=== PATIENT | male | born 1985 | race Two or more races ===

== ENCOUNTER 2017-03-10 13:17 | Emergency (ER) | payer OTHER ==
[2017-03-10 13:35] VITALS: BP 142/91; PULSE 86; TEMP 98.4; BMI 30.7
[2017-03-10] MEDS ORDERED: IBUPROFEN 400 MG TABLET (FP) PO ONE ×2 (13:43→14:03)
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
== END 2017-03-10 16:38 | disposition home or self-care (01) ==
LOC: FER 13:17
DX: S02.31XA Fracture of orbital floor, right side, initial encounter for closed fracture (principal); S01.81XA Laceration without foreign body of other part of head, initial encounter; F07.81 Postconcussional syndrome; S00.83XA Contusion of other part of head, initial encounter; V03.10XA Pedestrian on foot injured in collision with car, pick-up truck or van in traffic accident, initial encounter; Y93.89 Activity, other specified; Y92.410 Unspecified street and highway as the place of occurrence of the external cause; J45.909 Unspecified asthma, uncomplicated; F17.210 Nicotine dependence, cigarettes, uncomplicated
CPT/HCPCS: 70450-TC; 70486-TC; 99282-25

== ENCOUNTER 2019-08-04 16:21 | Emergency (ER) | payer OTHER ==
[2019-08-04 16:32] VITALS: BP 134/90; PULSE 98; TEMP 98.3; BMI 29.9
[2019-08-04] MEDS ORDERED: IBUPROFEN 600 MG TABLET (FP) PO ONE (17:02)
--- NOTE | 2019-08-04 17:30 | PDOC ---
History of Present Illness - General Chief Complaint: Sore Throat Stated Complaint: SORE THROAT/COLD Time Seen by Provider: 08/04/19 16:46 History Source: Patient Exam Limitations: No Limitations - History of Present Illness Initial Comments: 08/04/19 17:30 33-year-old male presents to ED with complaints of for evaluation of sore throat difficulty swallowing and fever since yesterday. Patient states took no medication. Is this a multiple visit Asthma Patient?: No Timing/Duration: other Severity: mild Associated Symptoms: reports: other (sore throat) Past History - Travel Traveled outside of the country in the last 30 days: No Close contact w/someone who was outside of country & ill: No - Past Medical History Allergies/Adverse Reactions: Allergies Allergy/AdvReac Type Severity Reaction Status Date / Time No Known Allergies Allergy Verified 08/04/19 16:32 Home Medications: Ambulatory Orders Cephalexin [Keflex] 500 mg PO BID #14 capsule 03/10/17 Ibuprofen 800 mg PO QID #30 tablet 03/10/17 Oxymetazoline HCl [Afrin] 1 spray NS QID #1 spray 03/10/17 Amoxicillin - [Amoxicillin 500mg Capsule -] 500 mg PO BID #14 capsule 08/04/19 Asthma: Yes COPD: No - Immunization History Immunization Up to Date: Yes - Psycho Social/Smoking Cessation Hx Smoking Status: No Smoking History: Never smoked Have you smoked in the past 12 months: Yes Number of Cigarettes Smoked Daily: 10 'Breaking Loose' booklet given: 03/10/17 Hx Alcohol Use: Yes (SOCIAL) Drug/Substance Use Hx: No Substance Use Type: Alcohol Patient Lives Alone: No Lives with/in: spouse/SO Review of Systems - Review of Systems Able to Perform ROS?: Yes Constitutional: No: Symptoms Reported HEENTM: Yes: Throat Pain, Throat Swelling Respiratory: No: Symptoms reported Cardiac (ROS): No: Symptoms Reported ABD/GI: No: Symptoms Reported : No: Symptoms Reported Musculoskeletal: No: Symptoms Reported Integumentary: No: Symptoms Reported Neurological: No: Symptoms reported *Physical Exam - Vital Signs Last Vital Signs Temp Pulse Resp BP Pulse Ox 98.3 F 98 H 18 134/90 100 08/04/19 16:29 08/04/19 16:29 08/04/19 16:29 08/04/19 16:29 08/04/19 16:29 - Physical Exam General Appearance: Yes: Nourished, Appropriately Dressed. No: Apparent Distress HEENT: positive: Normal Voice, TMs Normal, Pharyngeal Erythema, Tonsillar Exudate (3+ tonsils bilaterally). negative: Pale Conjunctivae Respiratory/Chest: positive: Lungs Clear, Normal Breath Sounds. negative: Respiratory Distress, Accessory Muscle Use Cardiovascular: positive: Regular Rhythm, Regular Rate. negative: Murmur Gastrointestinal/Abdominal: positive: Soft. negative: Tenderness Integumentary: positive: Normal Color, Warm, Moist Neurologic: positive: Motor Strength 5/5 (Ambulatory) ED Treatment Course - Medications Given in the ED: ED Medications Discontinued Medications Generic Name Dose Route Start Last Admin Trade Name Freq PRN Reason Stop Dose Admin Ibuprofen 600 mg 08/04/19 17:02 08/04/19 17:04 Motrin - PO 08/04/19 17:03 600 mg ONCE ONE Administration Medical Decision Making - Medical Decision Making 08/04/19 17:37 Chief complaint: Sore throat difficulty swallowing for 2 days no meds taken Exam: Patient with 3+ exudative tonsils bilaterally. Plan: Motrin and rapid strep sent 08/04/19 17:37 Laboratory Tests 08/04/19 17:12 Group A Strep Rapid Negative Patient be treated with amoxicillin for tonsillitis Discharge - Discharge Information Problems reviewed: Yes Clinical Impression/Diagnosis: Tonsillitis Condition: Good Disposition: HOME - Follow up/Referral - Patient Discharge Instructions Patient Printed Discharge Instructions: DI for Pharyngitis/Tonsillopharyngitis -- Adult Additional Instructions: I recommend drinking plenty of fluids ,gargle with warm salt water , and eat soft nonabrasive foods. take Motrin 600 mg every 8 hours and take antibiotics until completed. - Post Discharge Activity
== END 2019-08-04 17:45 | disposition home or self-care (01) ==
LOC: JERFT 16:21
DX: J03.90 Acute tonsillitis, unspecified (principal)
CPT/HCPCS: 87070; 87880; 99281-25

== ENCOUNTER 2021-08-01 13:09 | Emergency (ER) | payer OTHER ==
[2021-08-01 13:30] VITALS: BP 127/82; PULSE 104; TEMP 97.8; BMI 29.2
[2021-08-01] MEDS ORDERED: CEFAZOLIN 1 GM in DEXTROSE 5%-WATER - 50 ML IVPB ONE (13:56)
[2021-08-01] MEDS ORDERED: ceFAZolin SODIUM 1 GM VIAL ONE (14:08)
[2021-08-01 14:34] LABS: BASO % 0.4 % (0-2.0); EOS % 0.7 % (0-4.5); HEMATOCRIT 42.6 % (35.4-49); HEMOGLOBIN 14.4 GM/dL (11.7-16.9); LYMPH % 14.7 % (8-40); MCH 28.6 pg (25.7-33.7); MCHC 33.8 g/dl (32.0-35.9); MEAN CELL VOLUME 84.6 fl (80-96); MEAN PLT VOLUME 7.8 fl (7.5-11.1); MONO % 11.2 % (3.8-10.2); PLATELET COUNT 250 10^3/uL (134-434); RBC 5.04 M/mm3 (4.00-5.60); RDW 13.5 % (11.9-15.9); WHITE BLOOD COUNT 8.1 K/mm3 (4.0-10.0)
[2021-08-01 14:51] LABS: CALCIUM 8.6 mg/dL (8.5-10.1)
[2021-08-01 14:52] LABS: ALBUMIN 3.7 g/dl (3.4-5.0); BLOOD UREA NITROGEN 15.8 mg/dL (7-18)
[2021-08-01 14:54] LABS: URIC ACID 5.8 mg/dL (2.6-7.2)
[2021-08-01 14:55] LABS: CREATININE 0.9 mg/dL (0.55-1.3)
[2021-08-01 14:56] LABS: BILIRUBIN,TOTAL 0.4 mg/dL (0.2-1)
[2021-08-01 14:57] LABS: TOT PROT 7.4 g/dl (6.4-8.2)
== END 2021-08-01 15:16 | disposition home or self-care (01) ==
LOC: JERFT 13:09
DX: L03.114 Cellulitis of left upper limb (principal)
CPT/HCPCS: 36415; 73070-TC-LT-FY; 80053; 84550; 85025; 99284-25

== ENCOUNTER 2022-02-13 19:23 | Emergency (ER) | payer OTHER ==
[2022-02-13 19:29] VITALS: BP 115/72; PULSE 91; TEMP 98.6; BMI 30.7
[2022-02-13] MEDS ORDERED: ACETAMINOPHEN 500 MG TABLET (FP) PO ONE (20:37)
[2022-02-13] MEDS ORDERED: KETOROLAC TROMETHAMINE 60 MG/2 ML VIAL IM ONE (20:37)
[2022-02-13] MEDS ORDERED: KETOROLAC TROMETHAMINE 60 MG/2 ML VIAL ONE (20:38)
[2022-02-13] MEDS ORDERED: ACETAMINOPHEN 500 MG TABLET (FP) ONE (20:38)
== END 2022-02-13 21:36 | disposition home or self-care (01) ==
LOC: JERFT 19:23
PROC: 3E0233Z Introduction of Anti-inflammatory into Muscle, Percutaneous Approach (ICD-10-PCS; principal; 2022-02-13)
DX: S92.414A Nondisplaced fracture of proximal phalanx of right great toe, initial encounter for closed fracture (principal); V28.0XXA Motorcycle driver injured in noncollision transport accident in nontraffic accident, initial encounter
CPT/HCPCS: 73630-TC-RT-FY; 96372; 99284-25